=== PATIENT | female | born 1940 | race Caucasian/White ===

== ENCOUNTER 2018-07-03 13:19 | Inpatient (IN) ==
[2018-07-03 14:52] LABS: Basophils % 0.2 % (0.0-0.8); Eosinophils # 0.2 10*3/uL (0.0-0.87); Eosinophils % 3.1 % (0.00-10.9); Hematocrit 41.2 VOL% (35.7-47.0); Hemoglobin 13.5 GM/DL (12.0-16.0); Immature Granulocytes % 0.2 %; Immature Granulocytes Absolute 0.01 #; Lymphocytes # 1.4 10*3/uL (1.4-4.0); Lymphocytes % 21.8 % (21.3-54.2); Mean Corpuscular HGB Conc 32.8 GM/DL (32-36); Mean Corpuscular Hemoglobin 31 PG (27-34); Mean Corpuscular Volume 94.5 FL (87-102); Mean Platelet Volume 9.6 FL (9.6-12.0); Monocytes # 0.5 10*3/uL (0.11-0.8); Monocytes % 7.8 % (1.7-12.7); Neutrophils # 4.3 10*3/uL (1.4-7.4); Neutrophils % 66.9 % (38.7-73.9); Platelet Count 249 T/CUMM (130-400); Red Blood Count 4.36 MC/CUMM (3.8-5.5); Red Cell Distribution Width 13.2 % (9.3-17.3); White Blood Count 6.4 T/CUMM (4-12)
[2018-07-03 15:04] LABS: PT Patient Result 10.5 SECS; Partial Thromboplastin Time 24.8 SECS (0-40)
[2018-07-03 15:07] LABS: Barbiturates Screen,Urine Negative (Negative); Benzodiazepines Screen,Urine Negative (Negative); Cannabinoid Screen,Urine Negative (Negative); Opiate Screen,Urine Negative (Negative); Phencyclidine Screen,Urine Negative (Negative)
[2018-07-03 15:08] LABS: Apearance,Urine CLEAR (Clear); Bilirubin,Urine Negative (Negative); Blood, Urine Negative (Negative); Glucose,Urine (UA) Negative (Negative); Hyaline Casts,Urine 1 /LPF (0-3); Ketones,Urine Negative (Negative); Mucus,Urine Occasional /LPF (Occasional); Nitrite,Urine Negative (Negative); Protein,Urine Negative; RBC,Urine 1 /HPF (0-4); Squamous Epithelial Cell,Urine Occasional /HPF (0-10); Urine Color Straw (Yellow); Urine Specific Gravity 1.008 (1.001-1.035); Urine Urobilinogen < 2.0 EU/DL (0.2-1.0); WBC,Urine 15 /HPF (0-6)
[2018-07-03 15:19] LABS: Alanine Aminotransferase 22 U/L (13-56); Albumin 3.8 G/DL (3.4-5.0); Alkaline Phosphatase 81 U/L (45-117); Aspartate Amino Transferase 15 U/L (0-37); Blood Urea Nitrogen 22 MG/DL (7-18); Glucose 261 MG/DL (74-106); Osmolality,Calculated 284.8 MOS/KG (273-304); Potassium 4.1 MMOL/L (3.5-5.1); Sodium 137 MMOL/L (136-145); Total Protein 7.4 G/DL (6.4-8.3)
[2018-07-03] MEDS ORDERED: cefTRIAXone 1,000 MG in SODIUM CHLORIDE 0.9% 100 ML IV STA (15:48)
[2018-07-03] MEDS ORDERED: ASPIRIN 325 MG TABLET PO STA (16:05)
[2018-07-03] MEDS ORDERED: ONDANSETRON 4 MG/2 ML VIAL IV PRN (17:37)
[2018-07-03] MEDS ORDERED: ACETAMINOPHEN 325 MG TABLET PO PRN (17:37)
[2018-07-03] MEDS ORDERED: GLUCAGON 1 MG VIAL IM PRN (17:37)
[2018-07-03] MEDS ORDERED: DEXTROSE 50% 25 GM/50 ML SYRINGE IV PRN (17:37)
[2018-07-03] MEDS ORDERED: MORPHINE 4 MG/1 ML VIAL IV PRN (17:37)
[2018-07-03] MEDS: metFORMIN 500 MG TABLET PO SCH (18:44)
[2018-07-03] MEDS: GABAPENTIN 300 MG CAPSULE PO SCH (18:45)
[2018-07-03] MEDS: SODIUM CHLORIDE 0.9% 1,000 ML IV SCH (18:45)
[2018-07-03] MEDS: INSULIN REGULAR 100 UNIT/ML SUBCUT SCH (18:45)
[2018-07-03] MEDS: ENOXAPARIN 40 MG/0.4 ML SYRINGE SUBCUT SCH (21:16)
[2018-07-03] MEDS: DOCUSATE SODIUM 100 MG CAPSULE PO SCH (21:16)
[2018-07-03] MEDS: MAGNESIUM CHLORIDE 64 MG TABLET PO SCH (21:16)
[2018-07-03] MEDS: GABAPENTIN 600 MG TABLET PO SCH (21:16)
[2018-07-03] MEDS: CARVEDILOL 6.25 MG TABLET PO SCH (21:16)
[2018-07-03] MEDS: MULTIVITAMIN (OCUVITE) TABLET PO SCH (21:16)
[2018-07-03] MEDS: GLIMEPIRIDE 4 MG TABLET PO SCH (21:19)
[2018-07-04] MEDS: INSULIN GLARGINE 100 UNIT/ML SUBCUT SCH ×2 (01:22→22:56)
[2018-07-04] MEDS: INSULIN REGULAR 100 UNIT/ML SUBCUT SCH ×4 (01:22→18:04)
[2018-07-04] MEDS: DOXAZOSIN 1 MG TABLET PO SCH ×3 (01:32→22:23)
[2018-07-04 05:54] LABS: Basophils % 0.4 % (0.0-0.8); Eosinophils # 0.3 10*3/uL (0.0-0.87); Eosinophils % 5.7 % (0.00-10.9); Hematocrit 37.5 VOL% (35.7-47.0); Hemoglobin 12.2 GM/DL (12.0-16.0); Immature Granulocytes % 0.2 %; Immature Granulocytes Absolute 0.01 #; Lymphocytes # 1.9 10*3/uL (1.4-4.0); Lymphocytes % 37.6 % (21.3-54.2); Mean Corpuscular HGB Conc 32.5 GM/DL (32-36); Mean Corpuscular Hemoglobin 31 PG (27-34); Mean Corpuscular Volume 95.2 FL (87-102); Mean Platelet Volume 9.6 FL (9.6-12.0); Monocytes # 0.5 10*3/uL (0.11-0.8); Monocytes % 10.1 % (1.7-12.7); Neutrophils # 2.3 10*3/uL (1.4-7.4); Platelet Count 222 T/CUMM (130-400); Red Blood Count 3.94 MC/CUMM (3.8-5.5); Red Cell Distribution Width 13.2 % (9.3-17.3)
[2018-07-04 06:36] LABS: Albumin 3.2 G/DL (3.4-5.0); Bilirubin,Total 1.4 MG/DL (0.2-1.0); Calcium 8.5 MG/DL (8.5-10.1); Potassium 3.6 MMOL/L (3.5-5.1); Risk Ratio 3.69; Total Protein 6.5 G/DL (6.4-8.3); VLDL CHOLESTEROL 34.4 MG/DL
[2018-07-04] MEDS ORDERED: ALBUTEROL/IPRATROPIUM 3 ML NEB RESP TX PRN (07:20)
[2018-07-04] MEDS: SODIUM CHLORIDE 0.9% 1,000 ML IV SCH ×3 (08:49→23:53)
[2018-07-04] MEDS: MAGNESIUM CHLORIDE 64 MG TABLET PO SCH ×2 (08:50→22:21)
[2018-07-04] MEDS: MULTIVITAMIN (OCUVITE) TABLET PO SCH ×2 (08:51→22:23)
[2018-07-04] MEDS: ALLOPURINOL 300 MG TABLET PO SCH (08:51)
[2018-07-04] MEDS: ASPIRIN EC 325 MG TABLET PO SCH (08:51)
[2018-07-04] MEDS: PANTOPRAZOLE 40 MG TABLET PO SCH (08:51)
[2018-07-04] MEDS: DOCUSATE SODIUM 100 MG CAPSULE PO SCH ×2 (08:51→22:28)
[2018-07-04] MEDS: metFORMIN 500 MG TABLET PO SCH ×2 (08:51→17:59)
[2018-07-04] MEDS: FUROSEMIDE 40 MG TABLET PO SCH (08:52)
[2018-07-04] MEDS: CARVEDILOL 6.25 MG TABLET PO SCH ×2 (08:52→22:22)
[2018-07-04] MEDS: GLIMEPIRIDE 4 MG TABLET PO SCH ×2 (08:52→22:22)
[2018-07-04] MEDS: cefTRIAXone 1,000 MG in SYRINGE 1 EACH IV SCH (08:54)
[2018-07-04] MEDS ORDERED: ASPIRIN EC 81 MG TABLET PO SCH (09:00)
[2018-07-04] MEDS: CALCIUM (CITRATE)/VITAMIN D 200 MG-125 UNIT TABLET PO SCH (09:12)
[2018-07-04] MEDS: BUDESONIDE 0.25 MG/2 ML NEB RESP TX SCH (09:30)
[2018-07-04] MEDS: AZITHROMYCIN INJ 250 MG in SODIUM CHLORIDE 0.9% 250 ML IV SCH (09:37)
[2018-07-04] MEDS: GABAPENTIN 300 MG CAPSULE PO SCH (18:04)
[2018-07-04] MEDS: GABAPENTIN 600 MG TABLET PO SCH (22:22)
[2018-07-04] MEDS: ENOXAPARIN 40 MG/0.4 ML SYRINGE SUBCUT SCH (22:25)
[2018-07-05] MEDS: INSULIN REGULAR 100 UNIT/ML SUBCUT SCH ×3 (01:22→12:41)
[2018-07-05] MEDS: ALBUTEROL/IPRATROPIUM 3 ML NEB RESP TX SCH ×2 (03:11→08:02)
[2018-07-05] MEDS: BUDESONIDE 0.25 MG/2 ML NEB RESP TX SCH ×2 (03:13→08:02)
[2018-07-05 05:43] LABS: Albumin 3.1 G/DL (3.4-5.0); Bilirubin,Total 1.2 MG/DL (0.2-1.0); Calcium 8.5 MG/DL (8.5-10.1); Osmolality,Calculated 286.8 MOS/KG (273-304); Potassium 3.5 MMOL/L (3.5-5.1); Total Protein 6.4 G/DL (6.4-8.3)
[2018-07-05] MEDS ORDERED: ROSUVASTATIN 10 MG TABLET PO SCH (09:00)
[2018-07-05] MEDS ORDERED: POTASSIUM CHLORIDE 10 MEQ TABLET PO SCH (09:00)
[2018-07-05] MEDS ORDERED: CYANOCOBALAMIN 1000 MCG/1 ML VIAL IM ONE (09:00)
[2018-07-05] MEDS: DOCUSATE SODIUM 100 MG CAPSULE PO SCH (09:27)
[2018-07-05] MEDS: DOXAZOSIN 1 MG TABLET PO SCH (09:28)
[2018-07-05] MEDS: ALLOPURINOL 300 MG TABLET PO SCH (09:28)
[2018-07-05] MEDS: AZITHROMYCIN INJ 250 MG in SODIUM CHLORIDE 0.9% 250 ML IV SCH (09:28)
[2018-07-05] MEDS: MULTIVITAMIN (OCUVITE) TABLET PO SCH (09:28)
[2018-07-05] MEDS: CARVEDILOL 6.25 MG TABLET PO SCH (09:28)
[2018-07-05] MEDS: MAGNESIUM CHLORIDE 64 MG TABLET PO SCH (09:28)
[2018-07-05] MEDS: PANTOPRAZOLE 40 MG TABLET PO SCH (09:28)
[2018-07-05] MEDS: FUROSEMIDE 40 MG TABLET PO SCH (09:28)
[2018-07-05] MEDS: ASPIRIN EC 325 MG TABLET PO SCH (09:28)
[2018-07-05] MEDS: GLIMEPIRIDE 4 MG TABLET PO SCH (09:28)
[2018-07-05] MEDS: metFORMIN 500 MG TABLET PO SCH ×2 (09:28→16:30)
[2018-07-05] MEDS: cefTRIAXone 1,000 MG in SYRINGE 1 EACH IV SCH (09:29)
[2018-07-05] MEDS: CALCIUM (CITRATE)/VITAMIN D 200 MG-125 UNIT TABLET PO SCH (11:31)
[2018-07-05 16:12] VITALS: BP 166/70
[2018-07-05] MEDS: GABAPENTIN 300 MG CAPSULE PO SCH (16:31)
== END 2018-07-05 18:24 | disposition home or self-care (01) | DRG 65 ==
LOC: N.ED 13:19 → N.EDINP 16:08 → N.TELES 17:05
PROVIDERS: ADMIT Internal Medicine; ATTEND Internal Medicine

== ENCOUNTER 2021-10-23 21:03 | Inpatient (IN) ==
[2021-10-23 22:18] LABS: Basophils % 0.2 % (0.0-0.8); Eosinophils # 0.1 10*3/uL (0.0-0.87); Eosinophils % 1.2 % (0.00-10.9); Hematocrit 42.3 VOL% (35.7-47.0); Hemoglobin 14.3 GM/DL (12.0-16.0); Immature Granulocytes % 0.2 %; Immature Granulocytes Absolute 0.02 #; Lymphocytes # 1.4 10*3/uL (1.4-4.0); Lymphocytes % 16.3 % (21.3-54.2); Mean Corpuscular HGB Conc 33.8 GM/DL (32-36); Mean Platelet Volume 9.8 FL (9.6-12.0); Monocytes # 0.6 10*3/uL (0.11-0.8); Monocytes % 7.6 % (1.7-12.7); Neutrophils % 74.5 % (38.7-73.9); Platelet Count 307 T/CUMM (130-400); Red Blood Count 4.55 MC/CUMM (3.8-5.5); Red Cell Distribution Width 13.3 % (9.3-17.3); White Blood Count 8.3 T/CUMM (4-12)
[2021-10-23 22:35] LABS: Alanine Aminotransferase 26 U/L (13-56); Albumin 3.3 G/DL (3.4-5.0); Alkaline Phosphatase 69 U/L (45-117); Aspartate Amino Transferase 12 U/L (0-37); Bilirubin,Total < 0.39 MG/DL (0.20-1.00); Blood Urea Nitrogen 30 MG/DL (7-18); Calcium 9.7 MG/DL (8.5-10.1); Carbon Dioxide 25 MMOL/L (21-32); Chloride 102 MMOL/L (98-107); Glucose 251 MG/DL (74-106); Osmolality,Calculated 286.8 MOS/KG (273-304); Potassium 3.6 MMOL/L (3.5-5.1); Sodium 137 MMOL/L (136-145); Total Protein 6.7 G/DL (6.4-8.2)
[2021-10-23 22:40] LABS: INR 0.9; PT Patient Result 10.5 SECS (10.5-12.0)
[2021-10-23 22:47] LABS: Partial Thromboplastin Time < 20.0 SECS (23.8-32.1)
[2021-10-23 22:53] LABS: Eosinophils 1 % (0-10); Lymphocytes 19 % (20-55); Platelet Estimate Normal; Total Cells Counted 100
[2021-10-23] MEDS ORDERED: diphenhydrAMINE CAP 25 MG CAPSULE PO PRN (23:36)
[2021-10-23] MEDS ORDERED: DEXTROSE 50% 25 GM/50 ML VIAL IV PRN (23:36)
[2021-10-23] MEDS ORDERED: ZALEPLON 5 MG CAPSULE PO PRN (23:36)
[2021-10-23] MEDS ORDERED: guaiFENesin/DM ER 600-30 MG TABLET PO PRN (23:36)
[2021-10-23] MEDS ORDERED: ONDANSETRON 4 MG/2 ML VIAL IV PRN (23:36)
[2021-10-23] MEDS ORDERED: DEXTROSE 10% 250 ML BAG IV PRN (23:36)
[2021-10-23] MEDS ORDERED: NICOTINE 21 MG/24 HR PATCH TRANSDERM PRN (23:36)
[2021-10-23] MEDS ORDERED: GLUCAGON 1 MG VIAL IM PRN ×2 (23:36)
[2021-10-23 23:59] LABS: Bilirubin,Urine Small mg/dL (Negative); Glucose,Urine (UA) Negative (Negative); Ketones,Urine 15 mg/dL (Negative); Nitrite,Urine Negative (Negative); Protein,Urine >=300 mg/dL (Negative); Urine Appearance Clear (Clear); Urine Color Yellow (Yellow); Urine pH 5.5 (4.5-8.0)
[2021-10-24] LABS: Blood, Urine Small mg/dL (Negative); Urine Urobilinogen 0.2 eU/dL (<2.0)
[2021-10-24 00:02] LABS: Bacteria,Urine Few /HPF (Few); RBC,Urine 85 /HPF (0-4)
[2021-10-24 00:21] LABS: Barbiturates Screen,Urine Negative (Negative); Benzodiazepines Screen,Urine Negative (Negative); Cannabinoid Screen,Urine Negative (Negative); Opiate Screen,Urine Negative (Negative); Phencyclidine Screen,Urine Negative (Negative)
[2021-10-24] MEDS: cefTRIAXone 1,000 MG in SODIUM CHLORIDE 0.9% 100 ML IV SCH (03:30)
[2021-10-24] MEDS: ACETAMINOPHEN 325 MG TABLET PO PRN ×2 (03:30→09:14)
[2021-10-24 04:56] LABS: Basophils % 0.2 % (0.0-0.8); Eosinophils # 0.1 10*3/uL (0.0-0.87); Eosinophils % 1.3 % (0.00-10.9); Hematocrit 39.1 VOL% (35.7-47.0); Hemoglobin 13.1 GM/DL (12.0-16.0); Immature Granulocytes % 0.2 %; Immature Granulocytes Absolute 0.02 #; Lymphocytes # 1.7 10*3/uL (1.4-4.0); Lymphocytes % 20.6 % (21.3-54.2); Mean Corpuscular HGB Conc 33.5 GM/DL (32-36); Mean Corpuscular Volume 93.1 FL (87-102); Mean Platelet Volume 9.4 FL (9.6-12.0); Monocytes # 0.8 10*3/uL (0.11-0.8); Monocytes % 9.4 % (1.7-12.7); Neutrophils % 68.3 % (38.7-73.9); Platelet Count 254 T/CUMM (130-400); Red Cell Distribution Width 13.5 % (9.3-17.3); White Blood Count 8.2 T/CUMM (4-12)
[2021-10-24 05:15] LABS: Osmolality,Calculated 285.8 MOS/KG (273-304); Potassium 3.8 MMOL/L (3.5-5.1)
[2021-10-24] MEDS: hydrALAZINE 20 MG/1 ML VIAL IV PRN (06:10)
[2021-10-24] MEDS: PANTOPRAZOLE 40 MG TABLET PO SCH (09:05)
[2021-10-24] MEDS: HEPARIN 5,000 UNIT/1 ML VIAL SUBCUT SCH ×2 (09:05→20:34)
[2021-10-24] MEDS: INSULIN LISPRO 100 UNIT/ML SUBCUT SCH ×3 (09:06→19:10)
[2021-10-24] MEDS ORDERED: GABAPENTIN 300 MG CAPSULE PO ONE (14:30)
[2021-10-24] MEDS ORDERED: GABAPENTIN 300 MG CAPSULE PO SCH (17:00)
[2021-10-24] MEDS: carvediloL 3.125 MG TABLET PO SCH (20:33)
[2021-10-25] MEDS: INSULIN LISPRO 100 UNIT/ML SUBCUT SCH ×5 (00:13→22:04)
[2021-10-25] MEDS: cefTRIAXone 1,000 MG in SODIUM CHLORIDE 0.9% 100 ML IV SCH (02:38)
[2021-10-25] MEDS: oxyCODONE/ACETAMINOPHEN 5-325 MG TABLET PO PRN ×3 (05:23→22:03)
[2021-10-25 05:42] LABS: Basophils % 0.3 % (0.0-0.8); Eosinophils # 0.1 10*3/uL (0.0-0.87); Eosinophils % 1.9 % (0.00-10.9); Hematocrit 41.9 VOL% (35.7-47.0); Hemoglobin 13.7 GM/DL (12.0-16.0); Immature Granulocytes % 0.3 %; Immature Granulocytes Absolute 0.02 #; Lymphocytes # 1.6 10*3/uL (1.4-4.0); Lymphocytes % 22.9 % (21.3-54.2); Mean Corpuscular HGB Conc 32.7 GM/DL (32-36); Mean Corpuscular Volume 94.4 FL (87-102); Mean Platelet Volume 9.6 FL (9.6-12.0); Monocytes # 0.7 10*3/uL (0.11-0.8); Monocytes % 10.2 % (1.7-12.7); Neutrophils % 64.4 % (38.7-73.9); Platelet Count 275 T/CUMM (130-400); Red Blood Count 4.44 MC/CUMM (3.8-5.5); Red Cell Distribution Width 13.5 % (9.3-17.3); White Blood Count 6.9 T/CUMM (4-12)
[2021-10-25 06:04] LABS: Calcium 9.3 MG/DL (8.5-10.1); Osmolality,Calculated 282.7 MOS/KG (273-304)
[2021-10-25] MEDS: LEVOTHYROXINE 50 MCG TABLET PO SCH (06:41)
[2021-10-25] MEDS: amLODIPine 2.5 MG TABLET PO SCH (08:38)
[2021-10-25] MEDS: carvediloL 3.125 MG TABLET PO SCH ×2 (08:38→22:04)
[2021-10-25] MEDS: DOXAZOSIN 4 MG TABLET PO SCH (08:38)
[2021-10-25] MEDS: PANTOPRAZOLE 40 MG TABLET PO SCH (08:38)
[2021-10-25] MEDS: HEPARIN 5,000 UNIT/1 ML VIAL SUBCUT SCH ×2 (08:39→22:04)
[2021-10-25] MEDS ORDERED: MAGNESIUM SULF RIDER 2 GM/50 ML PREMIX IV ONE (15:51)
[2021-10-25] MEDS ORDERED: GABAPENTIN 300 MG CAPSULE PO SCH (17:00)
[2021-10-25] MEDS: PREGABALIN 75 MG CAPSULE PO SCH (17:02)
[2021-10-26] MEDS: cefTRIAXone 1,000 MG in SODIUM CHLORIDE 0.9% 100 ML IV SCH (01:01)
[2021-10-26] MEDS: oxyCODONE/ACETAMINOPHEN 5-325 MG TABLET PO PRN ×3 (02:08→21:04)
[2021-10-26] MEDS: hydrALAZINE 20 MG/1 ML VIAL IV PRN ×2 (04:53→17:49)
[2021-10-26 05:02] LABS: Basophils % 0.3 % (0.0-0.8); Eosinophils # 0.2 10*3/uL (0.0-0.87); Eosinophils % 2.3 % (0.00-10.9); Hematocrit 39.3 VOL% (35.7-47.0); Hemoglobin 12.8 GM/DL (12.0-16.0); Immature Granulocytes % 0.3 %; Immature Granulocytes Absolute 0.02 #; Lymphocytes # 1.7 10*3/uL (1.4-4.0); Lymphocytes % 25.5 % (21.3-54.2); Mean Corpuscular HGB Conc 32.6 GM/DL (32-36); Mean Platelet Volume 9.8 FL (9.6-12.0); Monocytes # 0.8 10*3/uL (0.11-0.8); Monocytes % 11.8 % (1.7-12.7); Neutrophils % 59.8 % (38.7-73.9); Platelet Count 246 T/CUMM (130-400); Red Blood Count 4.18 MC/CUMM (3.8-5.5); Red Cell Distribution Width 13.5 % (9.3-17.3); White Blood Count 6.5 T/CUMM (4-12)
[2021-10-26 05:19] LABS: Calcium 8.9 MG/DL (8.5-10.1); Osmolality,Calculated 283.8 MOS/KG (273-304); Potassium 4.1 MMOL/L (3.5-5.1)
[2021-10-26] MEDS: LEVOTHYROXINE 50 MCG TABLET PO SCH (06:24)
[2021-10-26] MEDS ORDERED: MAGNESIUM SULF RIDER 2 GM/50 ML PREMIX IV ONE (08:27)
[2021-10-26] MEDS: PANTOPRAZOLE 40 MG TABLET PO SCH (09:36)
[2021-10-26] MEDS: DOXAZOSIN 4 MG TABLET PO SCH (09:36)
[2021-10-26] MEDS: HEPARIN 5,000 UNIT/1 ML VIAL SUBCUT SCH ×2 (09:36→21:04)
[2021-10-26] MEDS: PREGABALIN 75 MG CAPSULE PO SCH (09:36)
[2021-10-26] MEDS: amLODIPine 2.5 MG TABLET PO SCH (09:36)
[2021-10-26] MEDS: INSULIN LISPRO 100 UNIT/ML SUBCUT SCH ×4 (09:37→21:04)
[2021-10-26] MEDS: carvediloL 3.125 MG TABLET PO SCH ×2 (09:40→21:03)
[2021-10-26] MEDS: SODIUM CHLORIDE 0.9% 1,000 ML IV SCH (09:42)
[2021-10-26] MEDS: ASPIRIN EC 81 MG TABLET PO SCH (12:08)
[2021-10-27] MEDS: cefTRIAXone 1,000 MG in SODIUM CHLORIDE 0.9% 100 ML IV SCH (00:54)
[2021-10-27] MEDS: oxyCODONE/ACETAMINOPHEN 5-325 MG TABLET PO PRN (04:30)
[2021-10-27] MEDS: SODIUM CHLORIDE 0.9% 1,000 ML IV SCH (04:34)
[2021-10-27 05:01] LABS: Basophils % 0.5 % (0.0-0.8); Eosinophils # 0.2 10*3/uL (0.0-0.87); Eosinophils % 2.9 % (0.00-10.9); Hematocrit 38.9 VOL% (35.7-47.0); Hemoglobin 12.6 GM/DL (12.0-16.0); Immature Granulocytes % 0.4 %; Immature Granulocytes Absolute 0.02 #; Lymphocytes # 1.5 10*3/uL (1.4-4.0); Lymphocytes % 27.8 % (21.3-54.2); Mean Corpuscular HGB Conc 32.4 GM/DL (32-36); Mean Corpuscular Volume 95.3 FL (87-102); Mean Platelet Volume 9.8 FL (9.6-12.0); Monocytes # 0.7 10*3/uL (0.11-0.8); Monocytes % 12.2 % (1.7-12.7); Neutrophils % 56.2 % (38.7-73.9); Platelet Count 243 T/CUMM (130-400); Red Blood Count 4.08 MC/CUMM (3.8-5.5); Red Cell Distribution Width 13.6 % (9.3-17.3); White Blood Count 5.5 T/CUMM (4-12)
[2021-10-27 05:20] LABS: Calcium 8.5 MG/DL (8.5-10.1); Osmolality,Calculated 284.7 MOS/KG (273-304)
[2021-10-27] MEDS: LEVOTHYROXINE 50 MCG TABLET PO SCH (05:54)
[2021-10-27] MEDS: INSULIN LISPRO 100 UNIT/ML SUBCUT SCH ×2 (08:32→12:10)
[2021-10-27] MEDS: amLODIPine 2.5 MG TABLET PO SCH (08:45)
[2021-10-27] MEDS: PANTOPRAZOLE 40 MG TABLET PO SCH (08:46)
[2021-10-27] MEDS: PREGABALIN 75 MG CAPSULE PO SCH (08:46)
[2021-10-27] MEDS: carvediloL 3.125 MG TABLET PO SCH (08:46)
[2021-10-27] MEDS: HEPARIN 5,000 UNIT/1 ML VIAL SUBCUT SCH (08:46)
[2021-10-27] MEDS: DOXAZOSIN 4 MG TABLET PO SCH (08:46)
[2021-10-27] MEDS: ASPIRIN EC 81 MG TABLET PO SCH (08:48)
[2021-10-27 11:53] VITALS: BP 155/78
== END 2021-10-27 12:45 | disposition home health service (06) | DRG 312 ==
LOC: EDBD → EDUNIT# → N.EDINP 21:03 → N.ED 21:03 → SUATTDRO 23:36 → N.5E 10-24 15:32
PROVIDERS: ADMIT Internal Medicine; ATTEND Internal Medicine

== ENCOUNTER 2022-05-21 12:02 | Inpatient (IN) ==
[2022-05-21] MEDS ORDERED: LORazepam 2 MG/1 ML VIAL ONE (12:08)
[2022-05-21 12:17] VITALS: BP 137/77
[2022-05-21 12:20] LABS: Basophils % 0.2 % (0.0-0.8); Hematocrit 44.9 VOL% (35.7-47.0); Hemoglobin 14.9 GM/DL (12.0-16.0); Immature Granulocytes % 0.3 %; Immature Granulocytes Absolute 0.03 #; Lymphocytes # 0.9 10*3/uL (1.4-4.0); Mean Corpuscular HGB Conc 33.2 GM/DL (32-36); Mean Corpuscular Volume 89.1 FL (87-102); Mean Platelet Volume 9.9 FL (9.6-12.0); Monocytes # 0.1 10*3/uL (0.11-0.8); Monocytes % 1.1 % (1.7-12.7); Neutrophils % 88.4 % (38.7-73.9); Platelet Count 255 T/CUMM (130-400); Red Blood Count 5.04 MC/CUMM (3.8-5.5); Red Cell Distribution Width 12.4 % (9.3-17.3); White Blood Count 8.8 T/CUMM (4-12)
[2022-05-21] MEDS ORDERED: FOSPHENYTOIN 1,000 MG.PE in SODIUM CHLORIDE 0.9% 250 ML IV STA ×2 (12:26→12:29)
[2022-05-21] MEDS ORDERED: niCARdipine INJ 25 MG in SODIUM CHLORIDE 0.9% 240 ML IV PRN (12:35)
[2022-05-21] MEDS ORDERED: niCARdipine 25 MG/10 ML VIAL IV ONE ×2 (12:43→12:55)
[2022-05-21 13:08] LABS: INR 1.1; PT Patient Result 12.1 SECS (10.1-12.1); Partial Thromboplastin Time 22.8 SECS (23.7-32.9)
[2022-05-21 13:22] LABS: Alanine Aminotransferase 31 U/L (13-56); Albumin 2.9 G/DL (3.4-5.0); Alkaline Phosphatase 93 U/L (45-117); Aspartate Amino Transferase 34 U/L (0-37); Blood Urea Nitrogen 11 MG/DL (7-18); Calcium 8.6 MG/DL (8.5-10.1); Carbon Dioxide 25 MMOL/L (21-32); Chloride 94 MMOL/L (98-107); Glucose 454 MG/DL (74-106); Osmolality,Calculated 280.7 MOS/KG (273-304); Potassium 3.5 MMOL/L (3.5-5.1); Sodium 131 MMOL/L (136-145); Total Protein 6.6 G/DL (6.4-8.2)
[2022-05-21 13:23] LABS: Urine Appearance Clear (Clear); Urine Color Yellow (Yellow)
[2022-05-21 13:24] LABS: Bilirubin,Urine Negative (Negative); Blood, Urine Small mg/dL (Negative); Glucose,Urine (UA) >1000 mg/dL (Negative); Ketones,Urine 80 mg/dL (Negative); Nitrite,Urine Negative (Negative); Protein,Urine >=300 mg/dL (Negative); Urine Urobilinogen 0.2 eU/dL (<2.0)
[2022-05-21] MEDS ORDERED: INSULIN REGULAR 100 UNIT/ML IV STA (13:36)
[2022-05-21 14:26] LABS: Barbiturates Screen,Urine Negative (Negative); Benzodiazepines Screen,Urine Negative (Negative); Cannabinoid Screen,Urine Negative (Negative); Opiate Screen,Urine Negative (Negative); Phencyclidine Screen,Urine Negative (Negative)
[2022-05-21] MEDS ORDERED: SODIUM CHLORIDE 0.9% 1,000 ML IV STA (16:21)
[2022-05-21] MEDS ORDERED: ENOXAPARIN 80 MG/0.8 ML SYRINGE SUBCUT STA (17:06)
[2022-05-21] MEDS ORDERED: ASPIRIN 300 MG SUPP RECTAL STA (17:06)
[2022-05-21] MEDS ORDERED: ALBUTEROL 2.5 MG/3 ML NEB RESP TX PRN (17:28)
[2022-05-21] MEDS ORDERED: MORPHINE 2 MG/1 ML SYRINGE IV PRN (17:33)
[2022-05-21] MEDS: PANTOPRAZOLE 40 MG VIAL IV SCH (17:47)
[2022-05-21] MEDS: ONDANSETRON 4 MG/2 ML VIAL IV PRN (17:48)
[2022-05-21] MEDS: SODIUM CHLORIDE 0.9% 1,000 ML IV SCH (18:51)
[2022-05-21] MEDS: fentaNYL 50 MCG/HR PATCH TRANSDERM SCH (19:16)
[2022-05-21] MEDS ORDERED: LABETALOL 20 MG/4 ML SYRINGE IV ONE (19:41)
[2022-05-22] MEDS: SODIUM CHLORIDE 0.9% 1,000 ML IV SCH ×2 (02:57→10:57)
[2022-05-22 03:42] LABS: Basophils % 0.2 % (0.0-0.8); Hematocrit 37.6 VOL% (35.7-47.0); Hemoglobin 12.6 GM/DL (12.0-16.0); Immature Granulocytes % 0.5 %; Immature Granulocytes Absolute 0.04 #; Lymphocytes # 1.2 10*3/uL (1.4-4.0); Lymphocytes % 14.2 % (21.3-54.2); Mean Corpuscular HGB Conc 33.5 GM/DL (32-36); Mean Corpuscular Volume 89.7 FL (87-102); Mean Platelet Volume 9.9 FL (9.6-12.0); Monocytes # 0.9 10*3/uL (0.11-0.8); Monocytes % 10.2 % (1.7-12.7); Neutrophils % 74.9 % (38.7-73.9); Platelet Count 222 T/CUMM (130-400); Red Blood Count 4.19 MC/CUMM (3.8-5.5); Red Cell Distribution Width 12.7 % (9.3-17.3); White Blood Count 8.8 T/CUMM (4-12)
[2022-05-22 04:02] LABS: Albumin 2.7 G/DL (3.4-5.0); Bilirubin,Total 0.6 MG/DL (0.20-1.00); Calcium 7.9 MG/DL (8.5-10.1); Osmolality,Calculated 297.4 MOS/KG (273-304); Potassium 3.6 MMOL/L (3.5-5.1); Total Protein 6.1 G/DL (6.4-8.2)
[2022-05-22 04:10] LABS: Risk Ratio 3.34
[2022-05-22] MEDS ORDERED: MAGNESIUM SULF RIDER 2 GM/50 ML PREMIX IV PRN (04:26)
[2022-05-22] MEDS ORDERED: MAGNESIUM SULF RIDER 4 GM/100 ML PREMIX IV PRN (04:26)
[2022-05-22] MEDS ORDERED: INSULIN REGULAR 100 UNIT/ML ONE (04:40)
[2022-05-22] MEDS: POTASSIUM CHLORIDE RIDER 10 MEQ/100 ML PREMIX IV PRN ×2 (04:42→05:39)
[2022-05-22] MEDS: INSULIN REGULAR 100 UNIT/ML SUBCUT SCH ×3 (04:46→18:08)
[2022-05-22] MEDS ORDERED: METHADONE 10 MG TABLET PO PRN (08:41)
[2022-05-22] MEDS: ENOXAPARIN 40 MG/0.4 ML SYRINGE SUBCUT SCH (10:11)
[2022-05-22] MEDS: ASPIRIN CHEW 81 MG TABLET PO SCH (10:11)
[2022-05-22] MEDS: MAGNESIUM OXIDE 400 MG TABLET PO SCH ×3 (10:11→20:09)
[2022-05-22] MEDS: GABAPENTIN 600 MG TABLET PO SCH ×4 (10:11→20:09)
[2022-05-22] MEDS: INSULIN GLARGINE 100 UNIT/ML SUBCUT SCH (10:11)
[2022-05-22] MEDS: FLUoxetine 10 MG CAPSULE PO SCH (10:11)
[2022-05-22] MEDS: amLODIPine 5 MG TABLET PO SCH (10:11)
[2022-05-22] MEDS: PANTOPRAZOLE 40 MG VIAL IV SCH (18:08)
[2022-05-23] MEDS: INSULIN REGULAR 100 UNIT/ML SUBCUT SCH ×6 (00:29→20:01)
[2022-05-23 03:45] LABS: Basophils % 0.5 % (0.0-0.8); Eosinophils # 0.1 10*3/uL (0.0-0.87); Hematocrit 34.6 VOL% (35.7-47.0); Hemoglobin 11.5 GM/DL (12.0-16.0); Immature Granulocytes % 0.2 %; Immature Granulocytes Absolute 0.01 #; Lymphocytes # 1.5 10*3/uL (1.4-4.0); Lymphocytes % 24.4 % (21.3-54.2); Mean Corpuscular HGB Conc 33.2 GM/DL (32-36); Mean Platelet Volume 9.7 FL (9.6-12.0); Monocytes # 0.5 10*3/uL (0.11-0.8); Monocytes % 7.5 % (1.7-12.7); Neutrophils % 66.4 % (38.7-73.9); Platelet Count 185 T/CUMM (130-400); Red Blood Count 3.76 MC/CUMM (3.8-5.5); Red Cell Distribution Width 12.8 % (9.3-17.3); White Blood Count 6.2 T/CUMM (4-12)
[2022-05-23 04:02] LABS: Calcium 8.2 MG/DL (8.5-10.1); Osmolality,Calculated 283.3 MOS/KG (273-304); Potassium 3.2 MMOL/L (3.5-5.1)
[2022-05-23] MEDS: POTASSIUM CHLORIDE RIDER 10 MEQ/100 ML PREMIX IV PRN ×4 (04:07→07:00)
[2022-05-23] MEDS: INSULIN GLARGINE 100 UNIT/ML SUBCUT SCH (08:07)
[2022-05-23] MEDS: MAGNESIUM OXIDE 400 MG TABLET PO SCH ×3 (08:08→20:01)
[2022-05-23] MEDS: amLODIPine 5 MG TABLET PO SCH (08:08)
[2022-05-23] MEDS: ENOXAPARIN 40 MG/0.4 ML SYRINGE SUBCUT SCH (08:08)
[2022-05-23] MEDS: ASPIRIN CHEW 81 MG TABLET PO SCH (08:08)
[2022-05-23] MEDS: GABAPENTIN 600 MG TABLET PO SCH ×4 (08:08→20:02)
[2022-05-23] MEDS: FLUoxetine 10 MG CAPSULE PO SCH (08:11)
[2022-05-23] MEDS: PANTOPRAZOLE 40 MG VIAL IV SCH (16:30)
[2022-05-23] MEDS: hydrALAZINE 20 MG/1 ML VIAL IV PRN (20:28)
[2022-05-24 04:20] LABS: Basophils % 0.4 % (0.0-0.8); Eosinophils # 0.1 10*3/uL (0.0-0.87); Hematocrit 36.4 VOL% (35.7-47.0); Hemoglobin 12.3 GM/DL (12.0-16.0); Immature Granulocytes % 0.4 %; Immature Granulocytes Absolute 0.03 #; Lymphocytes # 1.3 10*3/uL (1.4-4.0); Lymphocytes % 19.1 % (21.3-54.2); Mean Corpuscular HGB Conc 33.8 GM/DL (32-36); Mean Corpuscular Volume 90.3 FL (87-102); Monocytes # 0.6 10*3/uL (0.11-0.8); Monocytes % 8.7 % (1.7-12.7); Neutrophils % 69.4 % (38.7-73.9); Platelet Count 224 T/CUMM (130-400); Red Blood Count 4.03 MC/CUMM (3.8-5.5); Red Cell Distribution Width 12.6 % (9.3-17.3); White Blood Count 6.9 T/CUMM (4-12)
[2022-05-24 04:48] LABS: Albumin 2.5 G/DL (3.4-5.0); Bilirubin,Total 0.4 MG/DL (0.20-1.00); Calcium 8.5 MG/DL (8.5-10.1); Potassium 3.4 MMOL/L (3.5-5.1); Total Protein 6.2 G/DL (6.4-8.2)
[2022-05-24] MEDS: hydrALAZINE 20 MG/1 ML VIAL IV PRN (05:40)
[2022-05-24] MEDS: INSULIN REGULAR 100 UNIT/ML SUBCUT SCH ×2 (08:13→13:45)
[2022-05-24] MEDS ORDERED: CLOPIDOGREL 75 MG TABLET PO SCH (09:00)
[2022-05-24] MEDS: fentaNYL 50 MCG/HR PATCH TRANSDERM SCH (09:39)
[2022-05-24] MEDS: GABAPENTIN 600 MG TABLET PO SCH (09:39)
[2022-05-24] MEDS: MAGNESIUM OXIDE 400 MG TABLET PO SCH (09:39)
[2022-05-24] MEDS: FLUoxetine 10 MG CAPSULE PO SCH (09:39)
[2022-05-24] MEDS: ENOXAPARIN 40 MG/0.4 ML SYRINGE SUBCUT SCH (09:39)
[2022-05-24] MEDS: ASPIRIN CHEW 81 MG TABLET PO SCH (09:39)
[2022-05-24] MEDS: INSULIN GLARGINE 100 UNIT/ML SUBCUT SCH (09:39)
[2022-05-24] MEDS ORDERED: amLODIPine 5 MG TABLET PO ONE (10:17)
[2022-05-24] MEDS: ONDANSETRON 4 MG/2 ML VIAL IV PRN (10:26)
[2022-05-24] MEDS: amLODIPine 5 MG TABLET PO SCH (10:56)
[2022-05-25] MEDS ORDERED: amLODIPine 10 MG TABLET PO SCH (09:00)
== END 2022-05-24 15:45 | disposition home health service (06) | DRG 65 ==
LOC: N.ED 12:02 → N.CC 18:20 → SUATTDRO 18:41 → N.CC 18:41
PROVIDERS: ADMIT Internal Medicine; ATTEND Family Medicine